=== PATIENT | female | born 2000 | race Caucasian/White ===

== ENCOUNTER 2018-03-02 20:51 | Emergency (ER) | payer OTHER ==
--- NOTE | 2018-03-02 20:58 | UC ---
Throat Pain/Nasal Mark HPI - HPI Summary HPI Summary: 17 yo female presents accompanied by mother with complaints of a sore throat. She tells me that her sore throat started 3 days ago. 2 days ago felt feverish, but did not take her temperature. She has not taken anything for the discomfort. Currently denies fever, chills, cough, SOB, chest pain, or rash. - History of Current Complaint Stated Complaint: SORE THROAT Time Seen by Provider: 03/02/18 20:58 Hx Obtained From: Patient Onset/Duration: Gradual Onset Severity: Moderate Pain Intensity: 6 Pain Scale Used: 0-10 Numeric - Allergies/Home Medications Allergies/Adverse Reactions: Allergies Allergy/AdvReac Type Severity Reaction Status Date / Time No Known Allergies Allergy Unverified 03/02/18 21:03 PMH/Surg Hx/FS Hx/Imm Hx - Additional Past Medical History Additional PMH: None - Surgical History Surgical History: None - Family History Known Family History: Positive: None - Social History Occupation: Student Lives: With Family Alcohol Use: None Substance Use Type: None Smoking Status (MU): Never Smoked Tobacco Review of Systems Constitutional: Negative Skin: Negative Eyes: Negative ENT: Sore Throat Respiratory: Negative Cardiovascular: Negative Gastrointestinal: Negative Neurovascular: Negative Neurological: Negative Psychological: Negative All Other Systems Reviewed And Are Negative: Yes Physical Exam - Summary Physical Exam Summary: GENERAL: NAD. WDWN. No pain distress. SKIN: No rashes, sores, lesions, or open wounds. HEENT: Head: AT/NC Eyes: Conjunctiva clear without inflammation or discharge. Ears: Hearing grossly normal. TMs intact, no bulging, erythema, or edema. Nose: Nasal mucosa pink and moist. NTTP maxillary and frontal sinus. Throat: Posterior oropharynx moderate erythema and 3+ tonsillar enlargement. No exudates. Uvula midline. No hoarse voice or muffled voice. NECK: Supple. Mild tonsillar LAD with TTP CHEST: CTAB. No r/r/w. No accessory muscle use. Breathing comfortably and in no distress. CV: RRR. Without m/r/g. Pulses intact. Brisk cap refill. NEURO: Alert. CN II-XII grossly intact. PSYCH: Age appropriate behavior. Triage Information Reviewed: Yes Vital Signs: Vital Signs: Temp Pulse Resp BP Pulse Ox 98.6 F 84 18 150/87 99 03/02/18 20:59 03/02/18 20:59 03/02/18 20:59 03/02/18 20:59 03/02/18 20:59 Vital Signs Reviewed: Yes Throat Pain/Nasal Course/Dx - Course Course Of Treatment: Tonsillitis - Differential Dx/Diagnosis Provider Diagnoses: tonsillitis Discharge - Sign-Out/Discharge Documenting (check all that apply): Patient Departure - Discharge Plan Condition: Stable Disposition: HOME Prescriptions: Amoxicillin PO (*) [Amoxicillin 500 MG CAP*] 500 mg PO Q12H #14 cap predniSONE TAB* [Deltasone 20 MG TAB*] 20 mg PO DAILY #9 tab Patient Education Materials: Pharyngitis (ED) Referrals: Ryan William MD [Primary Care Provider] - Additional Instructions: If you develop a fever, shortness of breath, chest pain, new or worsening symptoms - please call your PCP or go to the ED. Your blood pressure was high at todays visit. Please see your primary provider within 4 weeks for recheck and re-evaluation. - Billing Disposition and Condition Condition: STABLE Disposition: Home
[2018-03-02 21:03] VITALS: BP 150/87
[2018-03-02] MEDS ORDERED: predniSONE TAB* 20 MG PO ONE (21:32)
[2018-03-02] MEDS ORDERED: Dexamethasone TAB* 4 MG PO ONE (21:33)
== END 2018-03-02 21:45 | disposition home or self-care (01) ==
LOC: UCEAST 20:51
DX: J03.90 Acute tonsillitis, unspecified (principal)
CPT/HCPCS: 87651; 99212; G0463; J8540